=== PATIENT | female | born 1965 | race African-American/Black ===

== ENCOUNTER 2021-01-03 22:34 | Emergency (ER) | payer OTHER ==
[~2021-01-03] VITALS: Ht 165.1 cm; Wt 95.0 kg
[2021-01-03] MEDS ORDERED: SODIUM CHLORIDE 0.9% 1,000 ML IV ONE (23:30)
[2021-01-03] MEDS ORDERED: MECLIZINE 12.5MG TABLET PO ONE (23:30)
[2021-01-04 00:08] LABS: BASOPHILS % 0.4 % (0.0-2.0); EOSINOPHILS % 0.3 % (0.0-5.0); HEMOGLOBIN. 12.8 g/dL (12.0-16.0); LYMPHOCYTES % 40.1 % (20.0-50.0); MEAN CORPUSCULAR HEMOGLOBIN 27.2 pg (28.0-32.0); MEAN CORPUSCULAR VOLUME 80.6 fL (81.0-99.0); MEAN PLATELET VOLUME 9.1 fl (7.4-10.4); MONOCYTES % 6.7 % (2.0-8.0); NEUTROPHILS % 52.5 % (40.0-76.0); PLATELET 245 x1000/uL (130-400); RED BLOOD CELL COUNT 4.72 mill/uL (4.2-5.4); RED CELL DISTRIBUTION WIDTH 14.2 % (11.6-14.6)
[2021-01-04 00:19] LABS: CHLORIDE 104 mEq/L (98-107)
[2021-01-04 02:00] VITALS: BP 138/63
== END 2021-01-04 02:44 | disposition home or self-care (01) ==
LOC: EDBD 22:34 → ER 22:34
DX: R42 Dizziness and giddiness (principal); R00.1 Bradycardia, unspecified; I10 Essential (primary) hypertension
CPT/HCPCS: 36415; 70450; 71045; 80053; 84484; 85025; 93005; 96360; 99285; J7030; J8597